=== PATIENT | female | born 1975 | race Caucasian/White ===

== ENCOUNTER → 2022-10-12 | Outpatient (CLI) | payer BC | LOC: MHCPAIN 15:31 | DX: M54.12 Radiculopathy, cervical region (principal); M47.892 Other spondylosis, cervical region | CPT/HCPCS: G0463 ==

== ENCOUNTER → 2022-10-15 | Outpatient (RCR) | payer OTHER | LOC: WSOH | DX: M50.20 Other cervical disc displacement, unspecified cervical region (principal); E78.00 Pure hypercholesterolemia, unspecified; F41.8 Other specified anxiety disorders; R73.9 Hyperglycemia, unspecified; Y99.0 Civilian activity done for income or pay; Y04.2XXA Assault by strike against or bumped into by another person, initial encounter ==

== ENCOUNTER 2022-10-26 15:06 | Outpatient (RCR) | payer OTHER | END 2022-11-14 | disposition home or self-care (01) | LOC: WSOH | DX: M50.20 Other cervical disc displacement, unspecified cervical region (principal); E78.00 Pure hypercholesterolemia, unspecified; R73.9 Hyperglycemia, unspecified; F41.8 Other specified anxiety disorders; G43.909 Migraine, unspecified, not intractable, without status migrainosus; Y99.0 Civilian activity done for income or pay; Y04.2XXD Assault by strike against or bumped into by another person, subsequent encounter ==

== ENCOUNTER 2024-02-12 08:01 | Emergency (ER) | payer BC ==
[~2024-02-12] VITALS: Ht 160 cm; Wt 65.5 kg
[2024-02-12 08:07] VITALS: TEMP 98.1
[2024-02-12] MEDS ORDERED: NS 1,000 ML IV ONE (08:30)
[2024-02-12] MEDS ORDERED: Ondansetron 4 MG/2 ML VIAL IV ONE (08:30)
[2024-02-12] MEDS ORDERED: Ketorolac 15 MG/ML VIAL IV ONE (08:30)
[2024-02-12 08:57] LABS: BASO % 0.5 % (0.0-2.0); EOS # 0.3 K/mm3 (0.0-0.7); EOS % 4.5 % (0.0-4.0); GRAN # 3.2 K/mm3 (1.4-6.5); HEMATOCRIT 41.4 % (37.0-47.0); HEMOGLOBIN 13.7 g/dl (12.5-16.0); LYMPH # 2.1 K/mm3 (1.2-3.4); LYMPH % 33.1 % (20.0-51.0); MEAN CELL VOLUME 98 fl (80.0-100.0); MEAN CORPUSCULAR HEMOGLOBIN 33 pg (27-31); MEAN CORPUSCULAR HGB CONC 33 g/dl (33.0-37.0); MEAN PLATELET VOLUME 9.5 fl (7.4-10.4); MONO # 0.6 K/mm3 (0.1-0.6); MONO % 9.6 % (1.7-9.3); PLATELET COUNT 214 K/mm3 (130-400); RED BLOOD COUNT 4.22 M/mm3 (4.10-5.30)
[2024-02-12 09:06] LABS: URINE APPEARANCE TURBID (CLEAR/HAZY); URINE BLOOD NEGATIVE (NEGATIVE); URINE COLOR YELLOW (YELLOW); URINE GLUCOSE NEGATIVE (NEGATIVE); URINE KETONE NEGATIVE (NEGATIVE); URINE NITRATE NEGATIVE (NEGATIVE); URINE PROTEIN(semi-quant) NEGATIVE (NEGATIVE)
[2024-02-12 09:13] LABS: CALCIUM 9.1 mg/dL (8.4-10.2); CREATININE, serum 0.85 mg/dL (0.57-1.11); TOTAL PROTEIN 6.1 g/dl (6.2-8.1)
[2024-02-12] MEDS ORDERED: Iohexol 300 - 100 ML VIAL IV ONE (09:23)
[2024-02-12] MEDS ORDERED: NS 100 ML IV SCH (09:23)
[2024-02-12 09:24] LABS: BILIRUBIN,TOTAL 0.6 mg/dL (0.2-1.2)
[2024-02-12 09:25] LABS: COLLECTION METHOD CLEAN CATCH
[2024-02-12] MEDS ORDERED: HYDROmorphone 0.5 MG/0.5 ML SYRINGE IV ONE (10:00)
[2024-02-12] MEDS ORDERED: CIPRO 500MG TA500 MG PO (10:36)
[2024-02-12] MEDS ORDERED: FLAGYL500 MG PO ×2 (10:36→10:46)
[2024-02-12 10:44] VITALS: BP 115/69; PULSE 60
== END 2024-02-12 10:53 | disposition home or self-care (01) ==
LOC: COL.ER 08:01
PROVIDERS: Emergency Medicine
DX: B17.9 Acute viral hepatitis, unspecified (principal); K51.30 Ulcerative (chronic) rectosigmoiditis without complications; R79.89 Other specified abnormal findings of blood chemistry
CPT/HCPCS: J1170; J1885; J2405; J7030; Q9967

== ENCOUNTER → 2024-03-06 | Outpatient (CLI) | payer BC ==
[~2024-03-06] MED LIST: CIPRO 500MG TA500 MG PO; FLAGYL500 MG PO
== END ==
LOC: MC.RAD 11:26
DX: Z12.31 Encounter for screening mammogram for malignant neoplasm of breast (principal)

== ENCOUNTER 2024-03-16 09:30 | Day surgery (SDC) | payer BC ==
[~2024-03-16] VITALS: Ht 160 cm; Wt 65.1 kg
[~2024-03-16 09:30] MED LIST changes: +LR 1,000 ML IV SCH; +Ondansetron 4 MG/2 ML VIAL IV PRN
[2024-03-16 09:44] VITALS: BP 110/75; PULSE 52; TEMP 97
[2024-03-16] MEDS ORDERED: AJOVY225 MG/1.5 SQ (09:55)
[2024-03-16] MEDS ORDERED: UBRELVY100 MG PO (09:55)
[2024-03-16] MEDS ORDERED: LEXAPRO20 MG PO (09:56)
[2024-03-16] MEDS ORDERED: TOPAMAX50 MG PO (09:56)
[2024-03-16] MEDS ORDERED: PRECOSE50 MG PO (09:56)
[2024-03-16] MEDS ORDERED: XANAX 0.5MG0.5 MG PO (09:57)
[2024-03-16] MEDS ORDERED: CRESTOR 10MG10 MG PO (09:57)
[2024-03-16] MEDS ORDERED: ZYRTEC 10MG10 MG PO (09:58)
--- NOTE | 2024-03-16 10:15 | NUR ---
The patient ambulated back to [facility] independently using a steady gait and appeared to tolerate the activity well. Vital signs obtained. Consent signed. 20G IV started in right hand with one stick, LR infusing without difficulty. BLood sugar checked by finger stick with a result of 83. Assessment completed. Home medications reconcilled. Warm blanket provided. brought back to be at her bedside. Denies any further needs at this time.
[2024-03-16] MEDS ORDERED: Lidocaine PF 2% (20 MG/ML) 5 ML VIAL ONE (10:32)
[2024-03-16] MEDS ORDERED: Glycopyrrolate 0.2 MG/ML 1 ML VIAL ONE (11:01)
[2024-03-16 11:30] VITALS: BP 111/73; PULSE 63; TEMP 97
[2024-03-16 11:45] VITALS: BP 101/68; PULSE 57
--- NOTE | 2024-03-16 12:17 | NUR ---
Pt returns from procedure at 1130 via car. Assisted to recliner chair with 2 staff, feet elevated. IV fluids infusing through right hand IV without complications. Snack given, blood sugar checked. 1150- Discharge instructions given, questions answered. Pt dressed at this time, up to bathroom. 1200- Dr. Santos in room to speak with patient. 1205- IV site removed. 1215- Down to husbands car via w/c. denies complaints.
== END 2024-03-16 12:15 | disposition home or self-care (01) ==
LOC: SDCO 09:30
DX: K29.50 Unspecified chronic gastritis without bleeding (principal); K90.0 Celiac disease; K52.9 Noninfective gastroenteritis and colitis, unspecified; K31.4 Gastric diverticulum; K31.89 Other diseases of stomach and duodenum; L29.9 Pruritus, unspecified; Z98.890 Other specified postprocedural states; Z98.84 Bariatric surgery status
CPT/HCPCS: J2704; J7120